=== PATIENT | female | born 1960 ===

== ENCOUNTER 2022-10-13 13:51 | Outpatient (CLI) | payer BC | END 2022-10-13 13:53 | disposition home or self-care (01) | LOC: SONOGRAMA 13:51 | PROVIDERS: ATTEND Pathology Anatomic Pathology & Clinical Pathology | DX: D34 Benign neoplasm of thyroid gland (principal); E04.9 Nontoxic goiter, unspecified; E04.1 Nontoxic single thyroid nodule ==